=== PATIENT | male | born 1990 | race Caucasian/White ===

== ENCOUNTER 2019-05-17 21:08 | Emergency (ER) | payer MEDICAID ==
[~2019-05-17] VITALS: Ht 170.2 cm; Wt 95.3 kg
[~2019-05-17 21:08] MED LIST: CYCL-181; IBU800T; MEDICAL MARAJUANA; NAPR500T31; NORCO
[2019-05-17 23:46] LABS: Basophils # (auto) 0.1 uL; Basophils % (auto) 1.2 % (0.0-2.0); Eosinophils # (auto) 0.3 uL; Eosinophils % (auto) 2.2 % (0.0-7.0); Hematocrit 42.1 % (41.0-53.0); Hemoglobin 14.3 g/dL (13.5-17.5); Lymphocytes % (auto) 34.8 % (10.0-50.0); Mean Corpuscular Hemoglobin 29.9 pg (28.0-32.0); Mean Corpuscular Hgb Conc. 33.9 g/dL (32.0-36.0); Mean Corpuscular Volume 88.3 fL (80.0-100.0); Monocytes # (auto) 0.9 uL; Monocytes % (auto) 7.7 % (0.0-12.0); Neutrophils # (auto) 6.3 uL; Neutrophils % (auto) 54.1 % (37.0-80.0); Nucleated Red Blood Cells % 0.1 %; Platelet Count (auto) 227 10^3/uL (140-450); Red Blood Cells 4.76 10^6/uL (4.5-5.90); Red Cell Distribution Width 12.9 % (11.8-14.3); White Blood Cell 11.6 10^3/uL (4.4-10.8)
[2019-05-18 00:05] LABS: BUN/Creatinine Ratio 16.5; Calcium 8.5 mg/dL (8.5-10.1); Potassium 4.3 mmol/L (3.5-5.1)
[2019-05-18 00:07] LABS: Bilirubin, Total 0.5 mg/dL (0.2-1.0)
[2019-05-18 01:31] LABS: Urine WBC None Seen /hpf (0 - 3)
[2019-05-18 01:49] LABS: Urine Bacteria NONE SEEN /hpf (None Seen); Urine Blood Negative /uL (Negative); Urine Specific Gravity 1.024 (1.001-1.035)
[2019-05-18 04:02] VITALS: BP 126/75
== END 2019-05-18 07:51 | disposition home or self-care (01) ==
LOC: ER 21:12
DX: R07.89 Other chest pain (principal); R55 Syncope and collapse; F12.10 Cannabis abuse, uncomplicated; E11.9 Type 2 diabetes mellitus without complications; E78.5 Hyperlipidemia, unspecified; K21.9 Gastro-esophageal reflux disease without esophagitis
CPT/HCPCS: 36415; 70450; 80053; 81001; 85025; 93005

== ENCOUNTER 2019-08-18 11:00 | Emergency (ER) | payer MEDICAID ==
[~2019-08-18] VITALS: Ht 172.7 cm; Wt 95.3 kg
[2019-08-18 11:19] VITALS: BP 147/81
[2019-08-18] MEDS ORDERED: KETOROLAC TROMETH 60MG/2ML VIAL IM ONE (12:45)
== END 2019-08-18 13:47 | disposition home or self-care (01) ==
LOC: ER 11:00
DX: M77.9 Enthesopathy, unspecified (principal)
CPT/HCPCS: 73030; 96372; 99283; J1885

== ENCOUNTER 2019-11-17 13:38 | Emergency (ER) | payer MEDICAID ==
[~2019-11-17] VITALS: Ht 175.3 cm; Wt 95.3 kg
[2019-11-17] MEDS ORDERED: SODIUM CHLORIDE 0.9% 1,000 ML IV ONE (15:40)
[2019-11-17] MEDS ORDERED: PROMETHAZINE HCL 25 MG/ML 1ML IV ONE ×2 (15:45→18:45)
[2019-11-17] MEDS ORDERED: HYDROmorphone HCL 2 MG/ML VL IV ONE ×2 (15:45→18:45)
[2019-11-17 15:55] LABS: Urine WBC None Seen /hpf (0 - 3)
[2019-11-17 16:16] LABS: Urine Bacteria NONE SEEN /hpf (None Seen); Urine Blood Negative /uL (Negative); Urine Specific Gravity 1.014 (1.001-1.035)
[2019-11-17 16:34] LABS: Basophils # (auto) 0.1 uL; Basophils % (auto) 0.9 % (0.0-2.0); Eosinophils # (auto) 0.3 uL; Hematocrit 40.6 % (41.0-53.0); Hemoglobin 13.9 g/dL (13.5-17.5); Lymphocytes # (auto) 2.2 uL; Lymphocytes % (auto) 34.6 % (10.0-50.0); Mean Corpuscular Hemoglobin 29.8 pg (28.0-32.0); Mean Corpuscular Hgb Conc. 34.3 g/dL (32.0-36.0); Mean Corpuscular Volume 86.8 fL (80.0-100.0); Monocytes # (auto) 0.5 uL; Monocytes % (auto) 8.3 % (0.0-12.0); Neutrophils # (auto) 3.3 uL; Neutrophils % (auto) 52.2 % (37.0-80.0); Nucleated Red Blood Cells % 0.1 %; Platelet Count (auto) 169 10^3/uL (140-450); Red Blood Cells 4.68 10^6/uL (4.5-5.90); Red Cell Distribution Width 12.5 % (11.8-14.3); White Blood Cell 6.4 10^3/uL (4.4-10.8)
[2019-11-17 16:55] LABS: Albumin 3.5 g/dL (3.4-5.0); Calcium 8.1 mg/dL (8.5-10.1); Magnesium 2.1 mg/dL (1.6-2.6); Potassium 3.9 mmol/L (3.5-5.1)
[2019-11-17 16:59] LABS: Bilirubin, Total 0.5 mg/dL (0.2-1.0); Total Protein 5.9 g/dL (6.4-8.2)
[2019-11-17 17:33] LABS: BUN/Creatinine Ratio 18.7
[2019-11-17] MEDS ORDERED: DexAMETHasone SOD PHOS 10MG/1ML VIAL INJ IV ONE (18:00)
[2019-11-17 21:49] VITALS: BP 147/90
== END 2019-11-17 20:28 | disposition short-term general hospital (02) ==
LOC: EDBD 13:38 → ER 13:49
DX: M54.17 Radiculopathy, lumbosacral region (principal); M47.897 Other spondylosis, lumbosacral region; E11.9 Type 2 diabetes mellitus without complications; K21.9 Gastro-esophageal reflux disease without esophagitis; E78.5 Hyperlipidemia, unspecified; Z88.0 Allergy status to penicillin; Z88.6 Allergy status to analgesic agent; W10.9XXA Fall (on) (from) unspecified stairs and steps, initial encounter; Y93.89 Activity, other specified; Y92.89 Other specified places as the place of occurrence of the external cause; Y99.8 Other external cause status
CPT/HCPCS: 36415; 71045; 72131; 72192; 80053; 81001; 83735; 85025; 96374; 96375; 96376; 99285; J1100; J1170; J2550; J7030